=== PATIENT | male | born 1995 | race Caucasian/White ===

== ENCOUNTER 2017-12-11 09:05 | Outpatient (CLI) | payer OTHER ==
--- NOTE | 2017-12-11 11:05 | CT ---
ABDOMEN CT WITH CONTRAST: PELVIS CT WITH CONTRAST: HISTORY: Lower abdominal pain. COMPARISON: None. TECHNIQUE: Abdomen and pelvis CT are performed with IV contrast. Enteric contrast is also administered. Hernandez l reformatted images are submitted for interpretation. FINDINGS: ABDOMEN: The lung bases are clear. Areas of scar/atelectasis are noted in the left lung base. The visualized aorta is unremarkable. The portal vein is patent. The liver, spleen, pancreas, and adrenal glands have appropriate enhancement. Symmetric enhancement of the kidneys. No obstructive uropathy. Symmetric attenuation of the psoas muscles. Gastrohepatic, retrocrural, or periportal lymphadenopathy is not appreciated. Decreased intraabdominal fat limits evaluation for inflammatory change. No mesenteric mass, lymphade nopathy, free air, or free fluid. The gastric mucosa, the duodenum, and multiple normal caliber small bowel loops are noted. The ileoc ecal junction is normal. There is scattered fecal material in a nondistended, nondilated colon. No evidence of colonic obstruction. Minimal diverticulosis of the sigmoid colon. No diverticulitis. A n appendix is not appreciated. No inflammation of the cecal apex. PELVIS: No mass, lymphadenopathy, free air, or free fluid. No lytic or blastic lesions in the osseous structures. IMPRESSION: An appendix is not visualized. [id number], no obvious inflammation of the cecal apex. No acute abnormality in the abdomen or pelvis. POS: [facility]
== END 2017-12-11 09:06 | disposition home or self-care (01) ==
LOC: SCSCT 09:05
PROVIDERS: ATTEND Family Medicine
DX: R10.30 Lower abdominal pain, unspecified (principal)
CPT/HCPCS: 74177

== ENCOUNTER 2018-02-02 16:00 | Outpatient (CLI) | payer OTHER | END 2018-02-02 16:01 | disposition home or self-care (01) | LOC: SLEEPLAB 16:00 | PROVIDERS: ATTEND Family Medicine | DX: G47.10 Hypersomnia, unspecified (principal); R53.83 Other fatigue; G31.84 Mild cognitive impairment of uncertain or unknown etiology; R06.83 Snoring; G47.00 Insomnia, unspecified; Z68.1 Body mass index [BMI] 19.9 or less, adult | CPT/HCPCS: 95806 ==

== ENCOUNTER 2020-08-08 08:48 | Outpatient (CLI) | payer OTHER ==
[2020-08-08 10:21] LABS: #Eosinphils 0.2 10x3/uL (0.0-0.5); #Monocytes 0.4 10x3/uL (0.0-1.1); #Neutrophils 2.5 10x3/uL (1.5-8.4); %Basophils 0.6 % (0.0-2.0); %Eosinophils 3.1 % (0.0-6.0); %Lymphocytes 35.1 % (18.0-47.0); %Monocytes 8.1 % (0.0-10.0); %Neutrophils 52.9 % (40.0-75.0); Hemoglobin 14.8 g/dL (13.5-17.5); Mean Corpuscular HGB CONC 33.6 g/dL (32.0-36.0); Mean Corpuscular Hemoglobin 30.6 pg (27.0-33.0); Mean Corpuscular Volume 91.1 fl (81.2-95.1); Mean Platelet Volume 10.8 fl (7.4-10.4); Platelet Count 254 10x3/uL (150-450); RBC Distribution Width 12.3 % (11.5-14.5); Red Blood Cell (RBC) Count 4.84 10x6/uL (4.32-5.72); White Blood Cell (WBC) Count 4.8 10x3/uL (3.5-10.5)
[2020-08-08 10:56] LABS: Anion Gap 14 mmol/L (10-20); BUN (Urea Nitrogen) 20 mg/dL (8.9-20.6); Calc. Creatinine Clearance 0 mL/min (70-130); Carbon Dioxide 27 mmol/L (22-29); Chloride 105 mmol/L (98-107); Glucose 92 mg/dL (70-105); Potassium 4.5 mmol/L (3.5-5.1); Sodium 141 mmol/L (136-145)
[2020-08-08 11:53] LABS: Calcium 9.7 mg/dL (7.8-10.44)
[2020-08-08 20:40] LABS: SARS-CoV-2 PCR by NAA Not Detected (NotDetected)
== END 2020-08-08 08:49 | disposition home or self-care (01) ==
LOC: LABBT 08:48
PROVIDERS: ATTEND Surgery
DX: Z01.812 Encounter for preprocedural laboratory examination (principal); Z20.822 Contact with and (suspected) exposure to COVID-19
CPT/HCPCS: 80048; 85025; 87635; U0003; U0005

== ENCOUNTER 2020-08-11 10:06 | Day surgery (SDC) | payer OTHER ==
[2020-08-09 12:21] VITALS: BMI 19.0
[2020-08-11] MEDS ORDERED: cefOXitin Sodium/Dextrose 2 GM/50 ML BAG ONE (10:25)
[2020-08-11] MEDS ORDERED: Lidocaine 2% Jelly 5 ML TUBE ONE ×2 (11:39→11:47)
[2020-08-11] MEDS ORDERED: Bupivacaine 0.25% HCL 30 ML VIAL ONE (11:39)
[2020-08-11] MEDS ORDERED: Lidocaine 1% w/Epinephrine 1:100K 20 ML VIAL ONE (11:39)
[2020-08-11] MEDS ORDERED: Fentanyl 100 MCG/2 ML VIAL ONE ×2 (11:47)
[2020-08-11] MEDS ORDERED: PROPOFOL 200 MG/20 ML VIAL ONE (12:04)
[2020-08-11] MEDS ORDERED: Ondansetron PF 4 MG/2 ML Vial ONE (12:04)
[2020-08-11] MEDS ORDERED: Glycopyrrolate 0.2 MG/ML 5 ML SYRINGE ONE (12:04)
[2020-08-11] MEDS ORDERED: Dexamethasone 20 MG/5 ML VIAL ONE (12:04)
[2020-08-11] MEDS ORDERED: Lidocaine 1% PF 5 ML VIAL ONE (12:04)
[2020-08-11] MEDS ORDERED: Rocuronium Bromide 10 MG/ML (10ML VIAL) ONE (12:04)
[2020-08-11] MEDS ORDERED: Meperidine HCl/PF 25 MG/ML VIAL ONE (13:16)
== END 2020-08-11 15:20 | disposition home or self-care (01) ==
LOC: SDC 10:06
PROVIDERS: ATTEND Surgery
PROC: 06BY3ZC Excision of Hemorrhoidal Plexus, Percutaneous Approach (ICD-10-PCS; principal; 2020-08-11)
DX: K64.8 Other hemorrhoids (principal); G43.909 Migraine, unspecified, not intractable, without status migrainosus; Z79.899 Other long term (current) drug therapy; Z88.8 Allergy status to other drugs, medicaments and biological substances
CPT/HCPCS: 80048; 85025; 87635; 88304; J0694; J1100; J2175; J2405; J2704; J3010; S0020; U0003; U0005